=== PATIENT | male | born 1930 | race Caucasian/White ===

== ENCOUNTER 2019-01-13 07:33 | Inpatient (IN) | payer MEDICARE, BC ==
[~2019-01-13] VITALS: Ht 170.2 cm; Wt 91.5 kg
[~2019-01-13 07:33] MED LIST: AMLO-150 PO; CHLORHEXIDINE 15 ML UDC ONE; LOSA1TAB19 PO; PRAV80TA2 PO; TAMS-11 PO
[2019-01-13] MEDS ORDERED: SODIUM CHLORIDE 0.9% 1,000 ML IV ONE (08:21)
[2019-01-13 08:28] VITALS: BP 98/57
[2019-01-13] MEDS ORDERED: CHLORHEXIDINE 15 ML UDC MM PRN (08:30)
[2019-01-13] MEDS ORDERED: ONDANSETRON 2MG/ML, 2ML IVPush PRN ×2 (08:30→13:00)
[2019-01-13] MEDS ORDERED: PLEASE ENTER HEIGHT AND WEIGHT MC SCH (09:00)
[2019-01-13] MEDS ORDERED: FINA5TAB4 PO (09:02)
[2019-01-13 09:06] LABS: BASOPHILS # (AUTO) 0.04 x10^3/uL (0-0.1); BASOPHILS % (AUTO) 0 % (0-1); EOSINOPHILS # (AUTO) 0.13 x10^3/uL (0-0.4); EOSINOPHILS % (AUTO) 1 % (1-7); LYMPHOCYTES # (AUTO) 4.35 x10^3/uL (1-3.4); LYMPHOCYTES % (AUTO) 38 % (22-44); MD NO; MEAN CORPUSCULAR HGB CONC 32.9 g/dL (33.2-36.2); MEAN CORPUSCULAR VOLUME 94.1 fL (81-97); MEAN PLATELET VOLUME 7.5 fL (7.4-10.4); MONOCYTES # (AUTO) 0.67 x10^3/uL (0.2-0.8); MONOCYTES % (AUTO) 6 % (2-9); NEUTROPHILS # (AUTO) 6.39 x10^3/uL (1.8-6.8); NEUTROPHILS % (AUTO) 55 % (42-75); PLATELET COUNT 228 x10^3/uL (130-400); RED BLOOD COUNT 4.17 x10^6/uL (4.38-5.82); RED CELL DISTRIBUTION WIDTH 13.5 % (9.4-14.8)
[2019-01-13 09:16] LABS: INTERNATIONAL NORMALIZED RATIO 0.99 (0.93-1.1); PROTHROMBIN TIME 10.4 Seconds (9.6-11.5)
[2019-01-13 09:18] LABS: ANION GAP 4 mmol/L (5-15); CALCIUM 8.8 mg/dL (8.5-10.1); CHLORIDE 109 mmol/L (98-107); CREATININE 1.32 mg/dL (0.7-1.3)
[2019-01-13] MEDS ORDERED: FENTANYL PF 250 MCG/5ML ONE (11:09)
[2019-01-13] MEDS ORDERED: ROCURONIUM 10MG/ML,5ML ONE (11:10)
[2019-01-13] MEDS ORDERED: PROPOFOL 10 MG/ML, 20ML ONE (11:10)
[2019-01-13] MEDS ORDERED: HEPARIN 1,000 UNITS/ML, 30ML ONE (11:10)
[2019-01-13] MEDS ORDERED: SUCCINYLCHOLINE 20 MG/ML, 10ML ONE (11:11)
[2019-01-13] MEDS ORDERED: ONDANSETRON 2MG/ML, 2ML ONE (11:53)
[2019-01-13] MEDS ORDERED: PHENYLEPHRINE 10 MG/ML ONE (11:53)
[2019-01-13] MEDS ORDERED: PROTAMINE SULFATE 10 MG/ML, 5ML ONE (11:53)
[2019-01-13] MEDS ORDERED: DEXAMETHASONE 4 MG/ML, 1ML ONE (11:53)
[2019-01-13] MEDS ORDERED: VASOPRESSIN 20 UNIT/ML, 1ML ONE (11:53)
[2019-01-13] MEDS ORDERED: CEFAZOLIN 1,000 MG ONE (11:53)
[2019-01-13] MEDS ORDERED: CLOPIDOGREL 300 MG TABLET PO ONE (13:00)
[2019-01-13] MEDS ORDERED: hydrALAzine 20 MG/ML, 1ML IVPush PRN (13:00)
[2019-01-13] MEDS: AMLODIPINE 5 MG TABLET PO SCH (13:00)
[2019-01-13] MEDS ORDERED: ACETAMINOPHEN 325 MG TABLET PO PRN (13:00)
[2019-01-13] MEDS ORDERED: LABETALOL 20 MG/4 ML IVPush PRN (13:00)
[2019-01-13] MEDS: LOSARTAN 50MG TABLET PO SCH (13:00)
[2019-01-13] MEDS: HYDROCHLOROTHIAZIDE 12.5 MG CAPSULE PO SCH (13:39)
[2019-01-13 15:00] VITALS: BP 115/43
[2019-01-13 20:42] VITALS: BP 106/57
[2019-01-13] MEDS: HYDROcodone/APAP 5/325 TABLET PO PRN ×2 (20:44→22:00)
[2019-01-13] MEDS ORDERED: PRAVASTATIN 40 MG TABLET PO SCH (21:00)
[2019-01-13 21:57] VITALS: BP 114/45
[2019-01-14 01:26] VITALS: BP 107/53
[2019-01-14 04:30] LABS: BASOPHILS # (AUTO) 0.02 x10^3/uL (0-0.1); BASOPHILS % (AUTO) 0 % (0-1); EOSINOPHILS % (AUTO) 0 % (1-7); LYMPHOCYTES # (AUTO) 2.63 x10^3/uL (1-3.4); LYMPHOCYTES % (AUTO) 27 % (22-44); MD NO; MEAN CORPUSCULAR HEMOGLOBIN 31.2 pg (27.5-34.5); MEAN CORPUSCULAR VOLUME 94.4 fL (81-97); MEAN PLATELET VOLUME 7.9 fL (7.4-10.4); MONOCYTES # (AUTO) 0.26 x10^3/uL (0.2-0.8); MONOCYTES % (AUTO) 3 % (2-9); NEUTROPHILS # (AUTO) 6.98 x10^3/uL (1.8-6.8); NEUTROPHILS % (AUTO) 71 % (42-75); PLATELET COUNT 180 x10^3/uL (130-400); RED BLOOD COUNT 3.73 x10^6/uL (4.38-5.82); RED CELL DISTRIBUTION WIDTH 13.6 % (9.4-14.8)
[2019-01-14 04:41] LABS: ANION GAP 2 mmol/L (5-15); CALCIUM 8.4 mg/dL (8.5-10.1); CHLORIDE 108 mmol/L (98-107); CREATININE 1.25 mg/dL (0.7-1.3)
[2019-01-14 08:00] VITALS: BP 120/76
[2019-01-14] MEDS: LOSARTAN 50MG TABLET PO SCH (08:26)
[2019-01-14] MEDS: AMLODIPINE 5 MG TABLET PO SCH (08:26)
[2019-01-14] MEDS: HYDROCHLOROTHIAZIDE 12.5 MG CAPSULE PO SCH (08:26)
[2019-01-14] MEDS ORDERED: ASPIRIN 81 MG TABLET EC PO SCH (09:00)
[2019-01-14] MEDS ORDERED: FINASTERIDE 5 MG TABLET PO SCH (09:00)
[2019-01-14] MEDS ORDERED: TAMSULOSIN 0.4 MG CAP.ER.24H PO SCH (09:00)
[2019-01-14] MEDS ORDERED: CLOPIDOGREL 75 MG TABLET PO SCH (09:00)
[2019-01-14] MEDS ORDERED: CLOP75TA PO (14:17)
[2019-01-14] MEDS ORDERED: ASPI81TA45 PO (14:22)
[2019-01-14] MEDS ORDERED: FLU VACC QS2019-20 36MOS UP/PF 0.5 ML IM-VACC ONE (14:30)
[2019-01-14] MEDS ORDERED: FLU VACCINE PER PHARMACY IM ONE (14:30)
== END 2019-01-14 15:48 | disposition home or self-care (01) | DRG 266 ==
LOC: ORIP 07:33 → CCU 13:15 → DCLOUNGE 01-14 15:19
PROVIDERS: ADMIT Internal Medicine Cardiovascular Disease; ATTEND Internal Medicine Cardiovascular Disease
PROC: B24BZZ4 Ultrasonography of Heart with Aorta, Transesophageal (ICD-10-PCS; 2019-01-13)
PROC: 03HY32Z Insertion of Monitoring Device into Upper Artery, Percutaneous Approach (ICD-10-PCS; 2019-01-13)
PROC: 02RF38Z Replacement of Aortic Valve with Zooplastic Tissue, Percutaneous Approach (ICD-10-PCS; principal; 2019-01-13 12:00)
DX: I35.0 Nonrheumatic aortic (valve) stenosis (principal); Z00.6 Encounter for examination for normal comparison and control in clinical research program; I50.33 Acute on chronic diastolic (congestive) heart failure; E78.5 Hyperlipidemia, unspecified; I11.0 Hypertensive heart disease with heart failure; I27.20 Pulmonary hypertension, unspecified; I37.1 Nonrheumatic pulmonary valve insufficiency; I44.7 Left bundle-branch block, unspecified; N40.1 Benign prostatic hyperplasia with lower urinary tract symptoms; R33.8 Other retention of urine; Z79.82 Long term (current) use of aspirin; Z79.899 Other long term (current) drug therapy
CPT/HCPCS: 33361; 36415; 80048; 85025; 85347; 85610; 85730; 86850; 86900; 86923; 87081; 90686; 93005; 93306; 93312; 93321; 93325; 93355; C1760; C1769; C1894; G0378; J0690; J1100; J1644; J2405; J2704; J2720; J3010; J0330; J2370; J7030; Q9967

== ENCOUNTER → 2019-03-03 | Outpatient (CLI) | payer MEDICARE, BC ==
[~2019-03-03] MED LIST changes: +ASPI81TA45 PO; -CHLORHEXIDINE 15 ML UDC ONE; +CLOP75TA PO; +FINA5TAB4 PO
== END | disposition home or self-care (01) ==
LOC: CVU 08:20
PROVIDERS: ATTEND Internal Medicine Cardiovascular Disease
CPT/HCPCS: 0399T ×2; 93306 ×2

== ENCOUNTER 2019-06-23 21:56 | Inpatient (IN) | payer MEDICARE, BC ==
[~2019-06-23] VITALS: Ht 170.2 cm; Wt 95.2 kg
[2019-06-23] MEDS: NOREPINEPHRINE 8 MG in SODIUM CHLORIDE 0.9% 242 ML IV PRN ×4 (22:22→23:25)
--- NOTE | 2019-06-23 22:22 | NUR ---
PT BROUGHT TO ER BY FLIGHT CREW WITH NOREPI AT 0.25 MCG/KG PT BP AT 143/69 PT TRITRATED TO 0.15 MCG /KG AT INTAKE.
[2019-06-23 22:25] LABS: MEAN CORPUSCULAR HEMOGLOBIN 30.6 pg (27.5-34.5); MEAN CORPUSCULAR HGB CONC 32.9 g/dL (33.2-36.2); MEAN CORPUSCULAR VOLUME 92.9 fL (81-97); MEAN PLATELET VOLUME 7.6 fL (7.4-10.4); PLATELET COUNT 238 x10^3/uL (130-400); RED BLOOD COUNT 4.06 x10^6/uL (4.38-5.82); RED CELL DISTRIBUTION WIDTH 14.6 % (9.4-14.8)
[2019-06-23] MEDS ORDERED: VASOPRESSIN 20 UNIT in SODIUM CHLORIDE 0.9% 99 ML IV PRN (22:30)
--- NOTE | 2019-06-23 22:30 | NUR ---
PROVIDER GAVE VERBAL ORDER TO HOLD OFF ON VASOPRESSIN IF PT B/P IS GOOD ON NOREPI.
[2019-06-23 22:38] LABS: ALANINE AMINOTRANSFERASE 23 U/L (12-78); ALBUMIN 3.6 g/dL (3.4-5.0); ANION GAP 8 mmol/L (5-15); CALCIUM 8.9 mg/dL (8.5-10.1); CHLORIDE 104 mmol/L (98-107); CREATININE 1.35 mg/dL (0.7-1.3)
[2019-06-23 22:41] LABS: ALKALINE PHOSPHATASE 108 U/L (45-117); TOTAL PROTEIN 7.3 g/dL (6.4-8.2)
[2019-06-23] MEDS ORDERED: OMNIPAQUE 350 MG/ML, 100ML BOTTLE ONE (22:41)
[2019-06-23 22:58] LABS: MD YES
[2019-06-23 23:00] LABS: BANDS%(MANUAL) 6 % (0-7); LYMPHS% (MANUAL) 12 % (22-44); MONOS#(MANUAL) 0.37 x10^3/uL (0.3-2.7); MONOS% (MANUAL) 1 % (2-9); SEG#(MANUAL) 29.73 x10^3/uL (1.8-6.8); SEGS% (MANUAL) 81 % (42-75)
[2019-06-23 23:01] LABS: <PLATELET ESTIMATE> ADEQUATE; <PLT MORPHOLOGY> NORMAL PLT MORPH; ANISOCYTOSIS 1+
[2019-06-23] MEDS: LACTATED RINGERS 1,000 ML IV SCH (23:25)
--- NOTE | 2019-06-24 00:03 | NUR ---
UA SAMPLE SENT TO LAB WITH STICKERS IN BAG WITH URINE TUBES X3, SCIENTIFIC SOFTWARE ENGINEER HENRRY REQUESTED THAT SINCE EACH TUBE WAS NOT LABELED THAT I PROVIDE ANOTHER SET OF TUBES WITH URINE TUBES LABELED. CERTIFIED TRAVEL COUNSELOR AGREED AND WALKED DOWN ANOTHER SET OF URINE TUBES LABELED WITH PT INFO AND HANDED IT TO SCIENTIFIC SOFTWARE ENGINEER. SCIENTIFIC SOFTWARE ENGINEER THANKED ME
[2019-06-24 00:17] LABS: MICROSCOPIC NOT IND
[2019-06-24 00:21] LABS: CULTURE INDICATED? NO
[2019-06-24] MEDS ORDERED: VANCOMYCIN PER PHARMACY MC PRN (00:30)
[2019-06-24] MEDS ORDERED: ONDANSETRON 2MG/ML, 2ML IVPush PRN (00:30)
[2019-06-24] MEDS: LACTATED RINGERS 1,000 ML IV SCH (01:43)
[2019-06-24 02:20] VITALS: BP 124/87
[2019-06-24] MEDS ORDERED: PHARMACOKINETIC MONITORING MC PRN (02:30)
[2019-06-24 04:01] VITALS: BP 105/63
[2019-06-24 04:55] LABS: ALANINE AMINOTRANSFERASE 21 U/L (12-78); BILIRUBIN, DIRECT 0.2 mg/dL (0.1-0.2)
[2019-06-24 04:58] LABS: ALKALINE PHOSPHATASE 92 U/L (45-117); BILIRUBIN,INDIRECT 0.4 mg/dL (0.0-2.0); BILIRUBIN,TOTAL 0.6 mg/dL (0.2-1.0); TOTAL PROTEIN 6.5 g/dL (6.4-8.2)
[2019-06-24 05:02] LABS: ANION GAP 7 mmol/L (5-15); CALCIUM 8.3 mg/dL (8.5-10.1); CHLORIDE 107 mmol/L (98-107)
[2019-06-24 05:28] LABS: MEAN CORPUSCULAR HEMOGLOBIN 30.2 pg (27.5-34.5); MEAN CORPUSCULAR HGB CONC 32.2 g/dL (33.2-36.2); MEAN CORPUSCULAR VOLUME 93.8 fL (81-97); RED BLOOD COUNT 3.78 x10^6/uL (4.38-5.82); RED CELL DISTRIBUTION WIDTH 14.2 % (9.4-14.8)
[2019-06-24] MEDS: PIPERACILLIN/TAZO/PMX 3.375GM 50 ML IV SCH ×3 (05:39→21:27)
[2019-06-24 06:17] LABS: MD YES
[2019-06-24 06:24] LABS: MEAN PLATELET VOLUME 7.8 fL (7.4-10.4); PLATELET COUNT 195 x10^3/uL (130-400)
[2019-06-24 06:27] LABS: <PLATELET ESTIMATE> ADEQUATE; LYMPHS% (MANUAL) 7 % (22-44); MONOS#(MANUAL) 0.81 x10^3/uL (0.3-2.7); MONOS% (MANUAL) 3 % (2-9); SEG#(MANUAL) 24.39 x10^3/uL (1.8-6.8); SEGS% (MANUAL) 90 % (42-75)
[2019-06-24 06:28] LABS: <PLT MORPHOLOGY> NORMAL PLT MORPH
[2019-06-24 06:32] LABS: <RBC MORPHOLOGY> NORMAL
[2019-06-24] MEDS ORDERED: VANCOMYCIN 1,700 MG in SODIUM CHLORIDE 0.9% 250 ML IV ONE (10:30)
[2019-06-24] MEDS: HEPARIN 5,000 UNITS/ML, 1ML SQ SCH ×2 (11:04→20:54)
[2019-06-24] MEDS ORDERED: MAGNESIUM SULFATE PMX 2GM/50ML 50 ML IV ONE (15:00)
[2019-06-24 19:59] VITALS: BP 94/65
[2019-06-24] MEDS ORDERED: FAMOTIDINE 20 MG/2 ML IVPush SCH (21:00)
[2019-06-25 06:16] LABS: MEAN CORPUSCULAR HEMOGLOBIN 30.8 pg (27.5-34.5); MEAN CORPUSCULAR HGB CONC 33.3 g/dL (33.2-36.2); MEAN CORPUSCULAR VOLUME 92.4 fL (81-97); MEAN PLATELET VOLUME 7.8 fL (7.4-10.4); PLATELET COUNT 156 x10^3/uL (130-400); RED BLOOD COUNT 3.26 x10^6/uL (4.38-5.82); RED CELL DISTRIBUTION WIDTH 14.4 % (9.4-14.8)
[2019-06-25 06:17] LABS: ANION GAP 5 mmol/L (5-15); CALCIUM 8.4 mg/dL (8.5-10.1); CHLORIDE 105 mmol/L (98-107); CREATININE 1.14 mg/dL (0.7-1.3)
[2019-06-25 06:19] LABS: VANCOMYCIN,RANDOM 15.2 mcg/mL
[2019-06-25] MEDS: HEPARIN 5,000 UNITS/ML, 1ML SQ SCH ×3 (06:26→21:18)
[2019-06-25] MEDS: PIPERACILLIN/TAZO/PMX 3.375GM 50 ML IV SCH (06:26)
[2019-06-25 06:34] LABS: BASOPHILS # (AUTO) 0.02 x10^3/uL (0-0.1); BASOPHILS % (AUTO) 0 % (0-1); EOSINOPHILS # (AUTO) 0.07 x10^3/uL (0-0.4); EOSINOPHILS % (AUTO) 0 % (1-7); LYMPHOCYTES # (AUTO) 2.47 x10^3/uL (1-3.4); LYMPHOCYTES % (AUTO) 12 % (22-44); MD SCAN; MONOCYTES # (AUTO) 0.99 x10^3/uL (0.2-0.8); MONOCYTES % (AUTO) 5 % (2-9); NEUTROPHILS # (AUTO) 17.46 x10^3/uL (1.8-6.8); NEUTROPHILS % (AUTO) 83 % (42-75)
[2019-06-25 06:52] VITALS: BP 92/56
[2019-06-25] MEDS: TAMSULOSIN 0.4 MG CAP.ER.24H PO SCH (08:53)
[2019-06-25 09:07] VITALS: BP 86/54
[2019-06-25] MEDS ORDERED: IBUPROFEN 200 MG TABLET PO PRN (09:30)
[2019-06-25 13:50] VITALS: BP 70/44
[2019-06-25] MEDS ORDERED: SODIUM CHLORIDE 0.9%, 250ML IVBOLUS ONE ×2 (14:30→20:00)
[2019-06-25 15:22] VITALS: BP 82/55
[2019-06-25 19:30] VITALS: BP 70/44
[2019-06-25 21:19] VITALS: BP 105/73
[2019-06-26] VITALS (8 sets, daily range): BP systolic 84–118; BP diastolic 52–82
[2019-06-26] MEDS: HEPARIN 5,000 UNITS/ML, 1ML SQ SCH ×3 (04:47→21:43)
[2019-06-26 05:38] LABS: BASOPHILS # (AUTO) 0.05 x10^3/uL (0-0.1); BASOPHILS % (AUTO) 0 % (0-1); EOSINOPHILS # (AUTO) 0.23 x10^3/uL (0-0.4); EOSINOPHILS % (AUTO) 1 % (1-7); LYMPHOCYTES # (AUTO) 2.67 x10^3/uL (1-3.4); LYMPHOCYTES % (AUTO) 16 % (22-44); MD NO; MEAN CORPUSCULAR HEMOGLOBIN 30.8 pg (27.5-34.5); MEAN CORPUSCULAR HGB CONC 33.3 g/dL (33.2-36.2); MEAN CORPUSCULAR VOLUME 92.5 fL (81-97); MEAN PLATELET VOLUME 8.3 fL (7.4-10.4); MONOCYTES # (AUTO) 1.16 x10^3/uL (0.2-0.8); MONOCYTES % (AUTO) 7 % (2-9); NEUTROPHILS # (AUTO) 12.56 x10^3/uL (1.8-6.8); NEUTROPHILS % (AUTO) 75 % (42-75); PLATELET COUNT 163 x10^3/uL (130-400); RED BLOOD COUNT 3.15 x10^6/uL (4.38-5.82); RED CELL DISTRIBUTION WIDTH 14.3 % (9.4-14.8)
[2019-06-26] MEDS: TAMSULOSIN 0.4 MG CAP.ER.24H PO SCH (08:28)
[2019-06-26] MEDS: ALBUMIN HUMAN 25% 100 ML IV SCH ×2 (12:28→21:43)
[2019-06-26] MEDS: DOCUSATE 50 MG/5 ML, 10ML UDC PO SCH (21:46)
[2019-06-27 01:53] VITALS: BP 137/61
[2019-06-27 05:12] LABS: BASOPHILS # (AUTO) 0.03 x10^3/uL (0-0.1); BASOPHILS % (AUTO) 0 % (0-1); EOSINOPHILS # (AUTO) 0.22 x10^3/uL (0-0.4); EOSINOPHILS % (AUTO) 2 % (1-7); LYMPHOCYTES # (AUTO) 2.31 x10^3/uL (1-3.4); LYMPHOCYTES % (AUTO) 21 % (22-44); MD NO; MEAN CORPUSCULAR HEMOGLOBIN 30.9 pg (27.5-34.5); MEAN CORPUSCULAR HGB CONC 33.4 g/dL (33.2-36.2); MEAN CORPUSCULAR VOLUME 92.4 fL (81-97); MEAN PLATELET VOLUME 8.6 fL (7.4-10.4); MONOCYTES # (AUTO) 0.89 x10^3/uL (0.2-0.8); MONOCYTES % (AUTO) 8 % (2-9); NEUTROPHILS # (AUTO) 7.73 x10^3/uL (1.8-6.8); NEUTROPHILS % (AUTO) 69 % (42-75); PLATELET COUNT 154 x10^3/uL (130-400); RED BLOOD COUNT 3.08 x10^6/uL (4.38-5.82); RED CELL DISTRIBUTION WIDTH 14.1 % (9.4-14.8)
[2019-06-27] MEDS: HEPARIN 5,000 UNITS/ML, 1ML SQ SCH ×2 (05:43→12:50)
[2019-06-27] MEDS: ALBUMIN HUMAN 25% 100 ML IV SCH ×2 (05:43→12:50)
[2019-06-27 07:30] VITALS: BP 116/76
[2019-06-27] MEDS: TAMSULOSIN 0.4 MG CAP.ER.24H PO SCH (08:44)
[2019-06-27] MEDS: DOCUSATE 50 MG/5 ML, 10ML UDC PO SCH (08:46)
[2019-06-27 12:47] VITALS: BP 103/69
== END 2019-06-27 14:04 | DRG 438 ==
LOC: ED 23:09 → EDIP 23:55 → CCU 06-24 01:05 → 5SO 06-24 12:23
PROVIDERS: ADMIT Internal Medicine; ATTEND Internal Medicine
DX: K85.90 Acute pancreatitis without necrosis or infection, unspecified (principal); I21.A1 Myocardial infarction type 2; J96.91 Respiratory failure, unspecified with hypoxia; I50.32 Chronic diastolic (congestive) heart failure; R65.10 Systemic inflammatory response syndrome (SIRS) of non-infectious origin without acute organ dysfunction; I44.7 Left bundle-branch block, unspecified; E78.5 Hyperlipidemia, unspecified; I11.0 Hypertensive heart disease with heart failure; I27.20 Pulmonary hypertension, unspecified; I48.91 Unspecified atrial fibrillation; K80.20 Calculus of gallbladder without cholecystitis without obstruction; Z96.659 Presence of unspecified artificial knee joint; N40.0 Benign prostatic hyperplasia without lower urinary tract symptoms; Z95.2 Presence of prosthetic heart valve; Z79.899 Other long term (current) drug therapy
CPT/HCPCS: 36415; 71045; 74177; 80048; 80053; 80076; 80202; 81003; 83605; 83690; 83735; 84100; 84145; 84484; 85025; 87040; 87081; 93005; 93306; 96374; G0378; J1644; J2543; J3370; P9047; Q9967; J3475; J3490; J7050; J7120